=== PATIENT | male | born 1950 | race Caucasian/White ===

== ENCOUNTER 2022-07-30 11:30 | Emergency (ER) | payer MEDICARE ==
[~2022-07-30] VITALS: Ht 165.1 cm; Wt 80.7 kg
[2022-07-30 12:25] VITALS: BP 127/79
== END 2022-07-30 12:15 | disposition home or self-care (01) ==
LOC: ER 11:38
DX: T82.49XA Other complication of vascular dialysis catheter, initial encounter (principal); I12.0 Hypertensive chronic kidney disease with stage 5 chronic kidney disease or end stage renal disease; N18.6 End stage renal disease; Z99.2 Dependence on renal dialysis; E78.5 Hyperlipidemia, unspecified; E03.9 Hypothyroidism, unspecified; Z95.4 Presence of other heart-valve replacement
CPT/HCPCS: 99283